=== PATIENT | male | born 1980 | race Caucasian/White ===

== ENCOUNTER 2023-11-15 10:57 | Emergency (ER) | payer OTHER ==
[2023-11-15 11:18] VITALS: BP 145/92; PULSE 61; RESP 20; TEMP 98.5; BMI 32.3
[2023-11-15] MEDS ORDERED: diphenhydrAMINE HCL 25 MG CAPSULE (FP) PO ONE (11:21)
[2023-11-15] MEDS: diphenhydrAMINE HCL 50 MG CAPSULE PO ONE (11:23)
[2023-11-15] MEDS ORDERED: CEPHALEXIN MONOHYDRATE 500 MG CAPSULE (UD) ONE (11:35)
[2023-11-15] MEDS: CEPHALEXIN MONOHYDRATE 500 MG CAPSULE (UD) PO ONE (11:36)
[2023-11-15 13:33] LABS: HIV INTERPRETATION NEGATIVE (NEGATIVE)
== END 2023-11-15 12:35 | disposition home or self-care (01) ==
LOC: JERFT 10:57
DX: T63.441A Toxic effect of venom of bees, accidental (unintentional), initial encounter (principal); M79.89 Other specified soft tissue disorders; Y93.H2 Activity, gardening and landscaping
CPT/HCPCS: 36415; 86803; 87389; 99283-25